=== PATIENT | male | born 1965 | race Caucasian/White ===

== ENCOUNTER 2020-08-19 23:52 | Emergency (ER) | payer OTHER ==
--- NOTE | 2020-08-20 00:49 | ER Document Report ---
ED Medical Screen (RME) - General Chief Complaint: Fall Stated Complaint: BACK PAIN,LUMBAR Time Seen by Provider: 08/20/20 00:43 Mode of Arrival: Medic Information source: Patient Notes: 55-year-old male presented to ED for complaint of falling off his back porch around 11 PM tonight. He states he had 12 beers today and then he fell off the back porch. He states he drinks about 12 beers every day. He states he smokes a pack and half of beer a day. He states he hurts all over. States he hurts in the upper and lower back and has some pain in the abdomen and chest which he always has. He is inebriated at this time he is answering questions. He is talking to his family on the telephone. I have greeted and performed a rapid initial assessment of this patient. A comprehensive ED assessment and evaluation of the patient, analysis of test results and completion of medical decision making process will be conducted by an additional ED providers. Physical Exam - Vital signs Vitals: Temp Pulse Resp BP Pulse Ox 98.1 F 92 20 130/76 H 89 L 08/20/20 00:13 08/20/20 00:13 08/20/20 00:13 08/20/20 00:13 08/20/20 00:13 Course - Vital Signs Vital signs: Temp Pulse Resp BP Pulse Ox 98.1 F 92 20 130/76 H 89 L 08/20/20 00:13 08/20/20 00:13 08/20/20 00:13 08/20/20 00:13 08/20/20 00:13
[2020-08-20] MEDS ORDERED: HYDROCODONE/ACETAMINOPHEN 5-325 MG TABLET PO ONE (00:55)
[2020-08-20 01:49] LABS: ABSOLUTE BASOPHILS # (AUTO) 0.1 10^3/uL (0.0-0.2); ABSOLUTE EOSINOPHILS # (AUTO) 0.1 10^3/uL (0.0-0.6); ABSOLUTE LYMPHOCYTES (AUTO) 3.1 10^3/uL (0.5-4.7); ABSOLUTE MONOCYTES (AUTO) 0.9 10^3/uL (0.1-1.4); ABSOLUTE NEUT (AUTO) 9.3 10^3/uL (1.7-8.2); BASOPHILS % (AUTO) 0.6 % (0-2); EOSINOPHILS % (AUTO) 0.7 % (0-6); HEMATOCRIT 42.4 % (37.9-51.0); HEMOGLOBIN 14.8 g/dL (13.5-17.0); MEAN CORPUSCULAR HEMOGLOBIN 32.2 pg (27.0-33.4); MEAN CORPUSCULAR HGB CONC 34.8 g/dL (32.0-36.0); MEAN CORPUSCULAR VOLUME 92 fl (80-97); MONOCYTES % (AUTO) 6.4 % (3-13); PLATELET COUNT 176 10^3/uL (150-450); RED BLOOD COUNT 4.59 10^6/uL (4.35-5.55); RED CELL DISTRIBUTION WIDTH 13.2 % (11.5-14.0); SEGMENTED NEUTROPHILS % (AUTO) 69.3 % (42-78); TOTAL CELLS COUNTED % (AUTO) 100 %; WHITE BLOOD COUNT 13.5 10^3/uL (4.0-10.5)
[2020-08-20 02:03] LABS: ALBUMIN 4.4 g/dL (3.5-5.0); ALKALINE PHOSPHATASE 114 U/L (38-126); ANION GAP 16 (5-19); ASPARTATE AMINO TRANSFERASE 161 U/L (17-59); BILIRUBIN,DIRECT 0.3 mg/dL (0.0-0.4); BILIRUBIN,TOTAL 0.5 mg/dL (0.2-1.3); BLOOD UREA NITROGEN 25 mg/dL (7-20); CALCIUM 9.9 mg/dL (8.4-10.2); CARBON DIOXIDE 15 mmol/L (22-30); CHLORIDE 108 mmol/L (98-107); GLUCOSE 359 mg/dL (75-110); POTASSIUM 4.9 mmol/L (3.6-5.0); TOTAL PROTEIN 7.7 g/dL (6.3-8.2)
--- NOTE | 2020-08-20 02:21 | RADIOLOGY REPORT (SQ) ---
EXAM DESCRIPTION: CT HEAD WITHOUT IV CONTRAST COMPLETED DATE/TME: 08/20/2020 02:08 CLINICAL HISTORY: 55 years, Male, Trauma protocol COMPARISON: None. TECHNIQUE: 210 Images stored on PACS. All CT scanners at this facility use dose modulation, iterative reconstruction, and/or weight based dosing when appropriate to reduce radiation dose to as low as reasonably achievable (ALARA). [facility]: Dose Right [facility]: CareDose [facility]: Dose Right [facility]: Teradose 4D [facility]: [employer] LIMITATIONS: None. FINDINGS: The globes are intact. The paranasal sinuses and mastoid air cells are well aerated. No displaced or depressed skull fracture. No acute intracranial hemorrhage. CT is limited for evaluation of acute infarct. No CT evidence for large or territorial acute infarct. No mass or midline shift IMPRESSION: Negative exam TECHNICAL DOCUMENTATION: Quality ID # [id number]: Final reports with documentation of one or more dose reduction techniques (e.g., Automated exposure control, adjustment of the mA and/or kV according to patient size, use of iterative reconstruction technique) copyright 2011 [employer]- All Rights Reserved
--- NOTE | 2020-08-20 02:22 | RADIOLOGY REPORT (SQ) ---
CT CERVICAL SPINE: 08/20/2020 1:20 AM TRACK LEADER TECHNIQUE: Axial contiguous images were obtained through the cervical spine without intravenous contrast. Sagittal and coronal reconstructions were also reviewed. This exam was performed according to our departmental dose-optimization program, which includes automated exposure control, adjustment of the mA and/or KV according to the patient's size and/or use of iterative reconstruction technique. COMPARISON: None available INDICATION: 55-year old patient with neck pain, trauma. FINDINGS: There are multilevel anterior osteophyte seen at the cervical spine. There is mild facet hypertrophy noted which likely contribute to some mild neural foraminal narrowing. There are multilevel disc osteophytes also present. The vertebral bodies appear well aligned. The vertebral body heights appear well maintained. No significant pre-vertebral soft tissue swelling is noted. No definite fracture or subluxation is noted. Mild multilevel intervertebral disc space narrowing is seen. The visualized brain parenchyma appears unremarkable. The craniocervical junction is unremarkable. There is some atherosclerotic calcification of the carotid bulbs. IMPRESSION: There are no findings to suggest an acute fracture or subluxation within the cervical spine.
--- NOTE | 2020-08-20 02:29 | RADIOLOGY REPORT (SQ) ---
CT CHEST, ABDOMEN, AND PELVIS WITH INTRAVENOUS CONTRAST: 08/20/2020 1:21 AM DENTAL FINANCIAL COORDINATOR HISTORY: 55-year old with trauma, chest and abdominal pain. COMPARISON: None available TECHNIQUE: Axial contiguous images were obtained from the lung apices to the proximal femurs with intravenous intravenous contrast administered. Sagittal and coronal reconstructions were also obtained and reviewed. This exam was performed according to our departmental dose-optimization program, which includes automated exposure control, adjustment of the mA and/or KV according to the patient's size and/or use of iterative reconstruction technique. FINDINGS: The heart size is at the upper limits of normal in size. No pericardial effusion is seen. No significant mediastinal, supraclavicular, or axillary lymphadenopathy is seen. The thoracic aorta is normal in size. The main pulmonary artery is enlarged and measures at least 3.1 cm in transverse dimension. The central tracheobronchial tree is patent. There is a 5 mm noncalcified nodule at the right upper lobe on image 23 of 97. There is mild to moderate centrilobular and paraseptal emphysematous change present. No focal consolidative airspace opacity is seen. No discrete pleural effusion is seen. There is no evidence of a pneumothorax. A large portion of the right abdomen and hemithorax was not fully included on this examination. The arterial phase. The visualized hepatic parenchyma appears diffusely hypodense, suggesting hepatic steatosis. The gallbladder demonstrates no evidence of calcified gallstones. The spleen is normal in size. The pancreas is unremarkable. There is a 6 mm nodule at the left adrenal gland which may represent an adenoma. Both kidneys demonstrate no evidence of hydronephrosis. No renal or ureteral calculi are seen. The urinary bladder is moderately distended. The stomach is moderately distended. The small bowel loops appear unremarkable. No pericolonic inflammatory stranding is seen. The appendix is unremarkable. There is no evidence of pneumoperitoneum or free fluid. The IVC appears normal. The infrarenal abdominal aorta is enlarged and measures at least 2.0 cm in AP dimension. No significantly enlarged lymph nodes are seen in the abdomen or pelvis. Review of the bone show no evidence of any suspicious lytic or blastic lesions. Multilevel degenerative changes are seen within the thoracic and lumbar spine. There is a pars defects seen at the left L5/S1 level. There is some stranding seen within the subcutaneous soft tissues along the left lateral abdominal wall and around the left iliac bone. This may reflect contusion. IMPRESSION: No acute process is seen within the chest, abdomen or pelvis. Hepatic steatosis There is contusion noted within the subcutaneous soft tissues along the left lateral abdominal and pelvic wall.
--- NOTE | 2020-08-20 03:37 | ER Document Report ---
ED General - General Chief Complaint: Fall Stated Complaint: BACK PAIN,LUMBAR Time Seen by Provider: 08/20/20 00:43 Primary Care Provider: ELOISA FOWLER MD [HONORARY] - Follow up as needed Mode of Arrival: Medic - HPI Context: Chief Complaint: [Left abdominal pain after fall] [This is a 55-year-old male presenting to the emergency department for evaluation of left lateral abdominal pain happened after he accidentally fell off his back porch steps around 2300 hrs. last night. Patient states he had 12 beers today and then accidentally fell off porch landing on his left trunk. ] History obtained from [patient] Symptoms began:[2300 hrs. yesterday] Onset: [Sudden] Timing: [While on back porch last night after drinking] Quality: [Sharp] Intensity: [5] Location: [Left lateral abdominal wall] Radiation: [Denies] [The pain does not migrate to a new location.] Aggravating factors: Deep breath, movement Relieving factors: [none] [Denies] SOB [Denies] nausea [Denies] vomiting [Denies] sweats [Denies] fever [Denies] cough [Denies] calf or leg swelling or pain - Related Data Home Medications: htn med. sugar pill. asa Past Medical History - General Information source: Patient - Social History Smoking Status: Current Every Day Smoker Chew tobacco use (# tins/day): No Smoking Education Provided: Yes Frequency of alcohol use: Heavy Drug Abuse: None Family History: Reviewed & Not Pertinent Patient has homicidal ideation: No Review of Systems - Review of Systems Notes: Review of systems as below unless otherwise stated in HPI. CONSTITUTIONAL [No] fever, [No] chills. EYES [No] eye pain. ENT [No] URI symptoms, [No] sore throat, [No] ear pain. CARDIOVASCULAR [No] chest pain, [No] palpitations, [No] edema. RESPIRATORY [No] Cough, [No] SOB, [No] wheezing. GASTROINTESTINAL Positive abdominal pain, [No] nausea, [No] Diarrhea, [No] Vomiting, [No] constipation, [No] melena, [No] rectal bleeding. GENITOURINARY [No] dysuria, [No] urinary frequency, [No] hematuria, [No] urinary urgency MUSCULOSKELETAL [No] Back pain. SKIN [No] Rash. NEUROLOGIC [No] Headache, [No] recent seizures, [No] paralysis,[No] parathesias. ENDOCRINE [No] polyuria. HEMO/LYMPATIC [No] easy brusing PSYCHIATRIC [No] depression. Physical Exam - Vital signs Vitals: Temp Pulse Resp BP Pulse Ox 98.1 F 92 20 130/76 H 89 L 08/20/20 00:13 08/20/20 00:13 08/20/20 00:13 08/20/20 00:13 08/20/20 00:13 - Notes Notes: CONSTITUTIONAL [Vital signs reviewed, Patient appears mildly uncomfortable, smells of byproducts of alcohol metabolism] HEAD [Atraumatic, Normocephalic.] EYES [Eyes are normal to inspection, No discharge from eyes, Extraocular muscles intact, Sclera are normal, Conjunctiva are normal.] ENT [External ears normal to inspection, Nose examination normal, Mouth normal to inspection.] NECK [Normal ROM, No jugular venous distention, No meningeal signs, ] RESPIRATORY CHEST [Chest is nontender, Breath sounds normal, No respiratory distress.] CARDIOVASCULAR [RRR, No murmurs, Normal S1 S2, No rub, No gallop.] ABDOMEN [Abdomen is tender to palpation in the left upper quadrant; no crepitus, subcu emphysema, step-off or deformity is appreciated, no pulsatile masses, No other masses, Bowel sounds normal, No distension, No peritoneal signs, No hernias.] BACK [There is no CVA Tenderness, There is no tenderness to palpation, Normal inspection.] UPPER EXTREMITY [Inspection normal, No cyanosis, No clubbing, No edema, LOWER EXTREMITY [Inspection normal, No cyanosis, No clubbing, No edema, No calf tenderness, NEURO [No focal motor deficits, No focal sensory deficits, Speech is slightly slurred and patient looks and smells intoxicated.] SKIN [Skin is warm, Skin is dry, Skin is normal color.] PSYCHIATRIC Pleasant affect. ] Course - Re-evaluation Re-evalutation: 08/20/20 04:08 Results of ED MSE discussed with patient, including results of all the scans done and recommendations made for patient to follow-up with [facility] provider [facility] basis to follow-up on the incidental and nonurgent findings on his CAT scans. All questions were answered prior to discharge. Patient was informed that I would not be writing him for any narcotic pain medication since he has been drinking alcohol. Patient was counseled for approximately 10 minutes about quitting smoking and quitting drinking and the health risks associated with continuing to do either or both. Emergency signs and symptoms, reasons to return to the emergency department discussed with patient. - Vital Signs Vital signs: Temp Pulse Resp BP Pulse Ox 98.1 F 92 20 130/76 H 89 L 08/20/20 00:13 08/20/20 00:13 08/20/20 00:13 08/20/20 00:13 08/20/20 00:13 - Laboratory Results Result Diagrams: 08/20/20 01:20 08/20/20 01:20 Laboratory Results Interpreted: 08/20/20 08/20/20 01:20 01:20 WBC 13.5 H Absolute Neuts (auto) 9.3 H Chloride 108 H Carbon Dioxide 15 L BUN 25 H Glucose 359 H AST 161 H ALT 103 H Critical Laboratory Results Reviewed: Yes Attending or Supervising Physician who Reviewed Labs: KATE SOLARES IV - Patient's glucose, LFTs noted and discussed with the patient - Radiology Results Critical Radiology Results Reviewed: No Critical Results Attending or Supervising Physician who Reviewed Radiology: KATE SOLARES IV Discharge - Discharge Clinical Impression: Alcohol use disorder, Alcohol cessation counseling, Tobacco abuse, Tobacco abuse counseling Accidental fall Qualifiers: Encounter type: initial encounter Qualified Code(s): W19.XXXA - Unspecified fall, initial encounter Abdominal wall contusion Qualifiers: Encounter type: initial encounter Qualified Code(s): S30.1XXA - Contusion of abdominal wall, initial encounter Condition: Stable Disposition: HOME, SELF-CARE Additional Instructions: Return to the Emergency Department without delay if any worse. Remember to follow-up with your regular doctor or with the [facility] about the findings on the CAT scan report to the chest abdomen pelvis that were done this morning. HOME CARE INSTRUCTIONS & INFORMATION: Thank you for choosing us for your medical needs. We hope you're satisfied with the care you received. After you leave, you must properly care for your problem and, at the same time, observe its progress. Any condition can change. Some illnesses can change rapidly over hours or days. If your condition worsens, return to the Emergency Department or see your physician promptly. ABOUT YOUR X-RAYS AND EKG'S: If you had an EKG or X-rays taken, they have been read by the Emergency Physician. The X-rays and EKG's will also be read by a Radiologist or Congressional Aide within 24 hours. If discrepancies are noted, you will be notified by telephone. Please be certain the ED has a correct telephone number & address where you can be reached. Also, realize that some fractures or abnormalities do not show up on initial X-rays. If your symptoms continue, see your physician. ABOUT YOUR LABORATORY TEST: If you had laboratory tests, the results have been reviewed by the Emergency Physician. Some test results (for example cultures) may not be available for several days. You will be contacted if any test result shows you need additional treatment. Please be certain the ED has a correct telephone number and address where you can be reached. ABOUT YOUR MEDICATIONS: You will receive instructions on how to take your medicine on the prescription label you receive. Additional information may be provided by the Pharmacy. If you have questions afterwards, call the ED for clarification or further instructions. Some prescribed medications may cause drowsiness. Do not perform tasks such as driving a car or operating machinery without consulting your Pharmacist. If you feel you need a refill of pain medication, your condition will need re-evaluation. Please do not call for a refill of any medication. ABOUT YOUR SIGNATURE: Signature of this document acknowledges to followin. Understanding that you received emergency treatment and that you may be re leased before al medical problems are known or treated. Please be certain the ED has a correct phone number & address where you can be reached. 2. Acknowledgement that you will arrange for follow-up care as recommended. 3. Authorization for the Emergency Physician to provide information to your follow-up Physician in order to maximize your care. AT ANY TIME, IF YOUR SYMPTOMS CHANGE SIGNIFICANTLY OR WORSEN OR YOU DEVELOP NEW SYMPTOMS, RETURN TO THE EMERGENCY DEPARTMENT IMMEDIATELY FOR RE-EVALUATION. OUR GOAL IS TO PROVIDE EXCELLENT MEDICAL CARE! WE HOPE THAT WE HAVE MET YOUR EXPECTATIONS DURING YOUR EMERGENCY DEPARTMENT VISIT AND THAT YOU FEEL YOU HAVE RECEIVED EXCELLENT CARE! Stop Smoking You should stop smoking. The tar and chemicals in cigarette smoke are harmful. Smoking has been shown to cause: Emphysema and chronic bronchitis Lung cancer Cancer of the mouth, larynx, stomach, and pancreas Heart disease and stroke Stillbirths and miscarriage Premature aging In addition, smoking increases the chances of respiratory infections and e ar infections in children of smokers, and increases the risk of cancer in persons exposed to second-hand smoke. Classes are available to help you stop smoking. If you are serious about wanting to quit, we can help arrange this therapy for you, or you can contact the local lung or cancer association. Contusion Your injury has resulted in a contusion -- a crushing of the deep tissues. No injury to important structures was detected during the physician's exam. Contusions vary in the amount of pain they cause, and in the length of time required for healing. Typically, the area will become bruised, and will remain painful to touch for two or three weeks. However, most patients are back to working and playing within a few days. After the initial period of rest and cold-packs, your symptoms (together with the doctor's recommendations) will determine how rapidly you can get back to full activity. Usually this means "do what feels okay, but don't do things that hurt." If re-examination was recommended, it's important to follow up as instructed. Call the doctor or return any time if pain increases, if swelling becomes severe, if you develop numbness or weakness in an injured extremity, or if any other alarming symptoms occur. Referrals: ELOISA FOWLER MD [HONORARY] - Follow up as needed
[2020-08-20 04:12] VITALS: BP 126/74
[2020-08-20 06:11] LABS: APPEARANCE,URINE CLEAR; BILIRUBIN,URINE NEGATIVE (NEGATIVE); COLOR,URINE STRAW; GLUCOSE, URINE >=500 mg/dL (NEGATIVE); KETONES,URINE NEGATIVE (NEGATIVE); LEUKOCYTE ESTERASE,URINE NEGATIVE (NEGATIVE); NITRITE,URINE NEGATIVE (NEGATIVE); PROTEIN,URINE NEGATIVE (NEGATIVE); UROBILINOGEN,URINE NEGATIVE mg/dL (<2.0)
--- NOTE | 2020-08-20 09:55 | EKG REPORT ---
SEVERITY:- NORMAL ECG - SINUS RHYTHM : Confirmed by: Abel Vega MD 20-Aug-2020 09:54:33
== END 2020-08-20 05:15 | disposition home or self-care (01) ==
LOC: ER 23:52
DX: S30.1XXA Contusion of abdominal wall, initial encounter (principal); M54.5 Low back pain; M54.6 Pain in thoracic spine; R10.9 Unspecified abdominal pain; F10.129 Alcohol abuse with intoxication, unspecified; W17.89XA Other fall from one level to another, initial encounter; Y92.009 Unspecified place in unspecified non-institutional (private) residence as the place of occurrence of the external cause; F17.210 Nicotine dependence, cigarettes, uncomplicated; Z72.89 Other problems related to lifestyle
CPT/HCPCS: 36415; 70450; 71260; 72125; 74177; 80053; 81001; 83690; 85025; 93005; 93010; 99285; 99406